=== PATIENT | female | born 1960 | race Caucasian/White ===

== ENCOUNTER 2023-12-17 16:44 | Emergency (ER) | payer OTHER, BC, SELFPAY ==
[2023-12-17 16:44] VITALS: BP 221/86; PULSE 73; RESP 18; TEMP 36.3; O2SAT 95
--- NOTE | 2023-12-17 16:52 | ED.SKABFB ---
HPI - Skin/Abscess/Foreign Bdy General Chief complaint: Unspecified Stated complaint: itching Time Seen by Provider: 12/17/23 16:52 Source: patient Mode of arrival: ambulatory Limitations: no limitations History of Present Illness HPI narrative: 63-year-old female with a history of hypertension, diabetes mellitus, SVT, fatty liver, status post cholecystectomy presents to the ER with 3 day history of -- generalized itching. No rash noted. Patient has not started any new medications. No new foods ingested. -- High blood pressure which on presentation was noted to be 182/80 no chest pain or shortness of breath. Patient is compliant with her blood pressure medications. MD complaint: other ( No skin lesions noted.) Tetanus up to date: yes Location: generalized Relieving factors: none Exacerbating factors: none Context: none Associated symptoms: denies other symptoms Treatments prior to arrival: none Related Data Home Medications Medication Instructions Recorded Confirmed clonidine HCl 0.1 mg tablet 0.1 mg PO BID 12/17/23 12/17/23 hydralazine 50 mg tablet 50 mg PO TID 12/17/23 12/17/23 metformin 500 mg tablet 500 mg PO BID 12/17/23 12/17/23 olmesartan 40 1 tablet PO DAILY 12/17/23 12/17/23 mg-hydrochlorothiazide 12.5 mg tablet verapamil 120 mg 24 hr 120 mg PO BID 12/17/23 12/17/23 capsule,extended release Allergies Allergy/AdvReac Type Severity Reaction Status Date / Time lincomycin Allergy Unknown Verified 12/17/23 16:51 Penicillins Allergy Unknown Verified 12/17/23 16:51 Sulfa (Sulfonamide Allergy Unknown Verified 12/17/23 16:51 Antibiotics) Review of Systems Review of Systems: All systems reviewed & are unremarkable except as noted in HPI and below Constitutional: Constitutional: Reports as per HPI and Reports no additional constitutional complaints Eyes: Eyes: Reports as per HPI and Reports no additional eye complaints ENT: Reports system reviewed and no additional complaints, except as documented and Reports as per HPI Cardiovascular: Cardiovascular: Reports as per HPI and Reports no additional cardiovascular complaints Respiratory: Respiratory: Reports as per HPI and Reports no additional respiratory complaints Gastrointestinal: Gastrointestinal: Reports as per HPI and Reports no additional gastrointestinal complaints Genitourinary: Genitourinary: Reports no additional female genitourinary complaints and Reports as per HPI Musculoskeletal: Musculoskeletal: Reports no additional musculoskeletal complaints and Reports as per HPI Integumentary/Breasts: Skin/Breast: Reports system reviewed and no additional complaints, except as docu and Reports as per HPI Neurologic: Reports system reviewed and no additional complaints, except as documented and Reports as per HPI Psychiatric: Psychiatric: Reports no additional psychiatric complaints and Reports as per HPI Endocrine: Endocrine: Reports no additional endocrine complaints and Reports as per HPI Hematologic/Lymphatic: Hematologic/Lymphatic: Reports no additional hematologic/lymphatic complaints and Reports as per HPI Allergic/Immunologic: Allergic/Immunologic: Reports no additional allergic/immunologic complaints and Reports as per HPI [facility] Past Medical History Medical History Diabetes mellitus Hypertension Supraventricular tachycardia Surgical History Surgical History History of cholecystectomy Hx of tonsillectomy Exam Narrative: blood pressure of 184/82. Const: General: healthy appearing and no acute distress Nutritional Appearance: well nourished Orientation/consciousness: patient oriented x3 Limitations: no limitations HENMT: Head: normal to inspection Ears: external ears normal Face/Nose/Sinus: Normal external nose present Face and sinus: normal facial exam Mouth: Yes Normal oral and palatal mucos
[2023-12-17 16:56] LABS: Glucose Point of Care 174 mg/dl (65-105)
[2023-12-17 17:06] VITALS: BP 182/80; PULSE 72; RESP 18; O2SAT 98
--- NOTE | 2023-12-17 17:07 | ECG_ITS ---
Test Date: 2023-12-17 17:19:42 Measurements Intervals [place] Rate: 55 P: 35 [place]: 185 QRS: -16 QRSD: 102 T: 25 QT: 416 QTc: 401 Interpretive Statements SINUS BRADYCARDIA INCOMPLETE RIGHT BUNDLE BRANCH BLOCK [90+ ms QRS DURATION, TERMINAL R IN V1/V2, 40+ ms S IN I/aVL/V4/V5/V6] No previous ECG available for comparison Electronically Signed On 12-18-2023 13:23:22 CDT by Breonna Rainey M.D.
[2023-12-17 17:14] LABS: Basophils Absolute Auto 0.04 K/mm3 (0.00-0.10); Basophils Percent Auto 0.4 % (0.0-1.0); Eosinophils Absolute Auto 0.12 K/mm3 (0.02-0.50); Eosinophils Percent Auto 1.2 % (1.0-6.0); Hematocrit 35.6 % (35.0-49.0); Hemoglobin 12.2 g/dL (12.0-15.0); Immature Granulocyte Absolute 0.05 K/mm3 (0.00-0.00); Immature Granulocyte Percent A 0.5 % (0.0-0.0); Lymphocytes Percent Auto 46.9 % (18.0-42.0); Mean Corpuscular HGB Conc 34.3 g/dL (32-36); Mean Corpuscular Hemoglobin 30.9 pg (27.0-31.0); Mean Corpuscular Volume 90.1 fL (78.0-102.0); Mean Platelet Volume 10.7 fl (9.2-11.8); Monocytes Absolute Auto 0.58 K/mm3 (0.10-0.90); Monocytes Percent Auto 5.7 % (2.0-11.0); Neutrophils Absolute Auto 4.65 K/mm3 (1.70-7.20); Neutrophils Percent Auto 45.3 % (50.0-70.0); Platelet Count Result 238 K/mm3 (150-420); Red Blood Count 3.95 M/mm3 (4.20-5.40); Red Cell Distribution Width 12.5 % (11.6-14.4); White Blood Count 10.2 K/mm3 (4.8-10.8)
[2023-12-17 17:16] LABS: Appearance Urine Clear (Clear); Bilirubin Urine Negative (Negative); Blood Urine Negative (Negative); Color Urine Yellow (Yellow); Glucose Urine UA Negative (Negative); Ketones Urine Negative (Negative); Leukocyte Esterase Ur Negative LEU/UL (Negative); Nitrate Urine Negative (Negative); Protein Urine Negative (Negative); Urobilinogen Urine 0.2 mg/dL (0.2-1.0)
[2023-12-17 17:22] LABS: Add Urine Microscopic? NO
[2023-12-17 17:27] LABS: INR 0.9; Prothrombin Time 10.3 Seconds (9.50-12.1)
[2023-12-17 17:45] LABS: Alanine Aminotransferase 34 U/L (14-59); Aspartate Amino Transferase 19 U/L (15-37); Bilirubin,Total 0.4 mg/dL (0.00-1.00); Blood Urea Nitrogen 13 mg/dL (7-18); Calcium 8.9 mg/dL (8.5-10.1); Carbon Dioxide 25 mmol/L (21-32); Estimated Glomerular Filt Rate > 60; Glucose 183 mg/dL (70-99)
[2023-12-17 17:46] LABS: Albumin Level 3.5 g/dL (3.4-5.0); Alkaline Phosphatase 84 U/L (46-116)
[2023-12-17 17:47] LABS: Thyroid Stimulating Hormone 3.25 uIU/mL (0.36-3.74)
[2023-12-17 17:51] LABS: Anion Gap 9 mmol/L (4-12); Chloride 103 mmol/L (98-108); Osmolality Calculated 289 mOsm/kg (285-295); Potassium 3.6 mmol/L (3.5-5.1); Sodium 137 mmol/L (136-145)
[2023-12-17 18:05] VITALS: BP 189/84; PULSE 72; RESP 18; O2SAT 99
== END 2023-12-17 18:05 | disposition home or self-care (01) ==
PROVIDERS: Emergency Provider Internal Medicine Critical Care Medicine; PCP Physician Assistant
DX: L29.9 Pruritus, unspecified (principal); I10 Essential (primary) hypertension; E11.9 Type 2 diabetes mellitus without complications; Z90.49 Acquired absence of other specified parts of digestive tract; Z79.899 Other long term (current) drug therapy; Z79.84 Long term (current) use of oral hypoglycemic drugs
CPT/HCPCS: 36415; 80053; 81003; 82948; 84443; 84484; 85025; 85610; 93005; 99284

== ENCOUNTER 2024-11-22 15:58 | Emergency (ER) | payer OTHER, BC, SELFPAY ==
--- OUTSIDE RECORDS SUMMARY | 2024-11-22 16:00 | XMS_ITS | Clinical Summary ---
Author Organization [facility] Address [address] [place] [address] Phone Care Team Providers Care Plant And Maintenance Technician Name Role Phone Gopal Boogie Primary Care Provider [phone] Allergies Active Allergy Reactions Criticality Noted Date Comments Iodinated Contrast Media Shortness of Breath Lincomycin Hives 10/24/2019 Penicillins Hives 10/24/2019 Sulfa Antibiotics Hives 10/24/2019 Medications verapamil (CALAN,ISOPTIN) 40 MG Tablet Take 40 mg by mouth 2 times daily. Active lisinopril (PRINIVIL, ZESTRIL) 40 MG Tablet Take 40 mg by mouth 2 times daily. Active dicyclomine (BENTYL) 20 MG Tablet Take 1 Tab by mouth every 6 hours. 30 Tab 10/24/2019 Active clonazePAM (KlonoPIN) 0.5 MG Tablet Take 0.1 mg by mouth 3 times daily. Active cloNIDine (CATAPRES) 0.1 MG Tablet Take 0.1 mg by mouth 2 times daily. Active hydrALAZINE 25 MG Tablet Take 25 mg by mouth in the morning and at bedtime. Active Social History Tobacco Use Types Packs/Day Years Used Date Smoking Tobacco: Former Smokeless Tobacco: Never Alcohol Use Standard Drinks/Week Comments Never 0 (1 standard drink = 0.6 oz pur e alcohol) AUDIT-C Answer Date Recorded Q1: How often do you have a drink containing alc ohol? Never 10/24/2019 Average Number of Drinks Not on file 020 Frequency of Binge Drinking Not on file 06/2019 Comments No Sex and Gender Information Value Date Recorded Sex Assigned at Female 06/23/2023 5:06 AM TESTING CONSULTANT Legal Sex Female 12:58 AM CDT Gender Identity Female 06/23/2023 5:06 AM TESTING CONSULTANT Sexual Orientation Not on file Last Filed Vital Signs Vital Sign Reading Time Taken Comments Blood Pressure 166/72 04/18/2024 5:30 AM CDT Pulse 61 04/18/2024 5:30 AM CDT Temperature 37 C (98.6 F) 04/18/2024 3:17 AM CDT Respiratory Rate 19 04/18/2024 5:30 AM CDT Oxygen Saturation 97% 04/18/2024 5:30 AM CDT Inhaled Oxygen Concentration - - Weight 121.3 kg (267 lb 6.7 oz) 04/18/2024 3:17 AM CDT Height 162.6 cm (5' 4) 04/18/2024 3:17 AM CDT Body Mass Index 45.9 04/18/2024 3:17 AM CDT Plan of Treatment Health Maintenance Due Date Last Done Comments Hepatitis C Virus (HCV) Screening 1961 Mammogram 1961 TdaP Immunization 1961 Pap Smear 1982 Cervical Cancer Screening (CCS) 12/05/1991 HPV/Cotest 12/05/1991 Colonoscopy 2006 Colorectal Cancer Screening 2006 Cologuard 12/05/2011 Immunochemical Fecal Occult Blood 12/05/2011 Pneumococcal Immunization (5 0+ years) (1 of 1 - PCV) 12/05/2011 Zoster Immunization (1 of 2) 12/05/2011 Respiratory Syncytial Virus (RSV) Immunization (Adult) (1 - Risk 60-74 years 1-dose series) 2021 Influenza Immunization (#1) 2024 SARS-COV-2 Immunization ( season) 2024 DTaP/Tdap/Td Immunization Discontinued 02/13/2006 Hepatitis B Immunization Aged Out No longer eligible based on patient's age to complete this topic Meningococcal Immunization (ACWY) Aged Out No longer eligible based on patient's age to complete this topic Rotavirus Immunization Aged Out No lo nger eligible based on patient's age to complete this topic Insurance MEDICAID BL[place] [employer] Care Teams Plant And Maintenance Technician Relationship Specialty Start Date End Date Gopal Boogie, [address] [place] [address] PCP - General Physician Delivery Coordinator 06/15/21
--- OUTSIDE RECORDS SUMMARY | 2024-11-22 16:00 | XMS_ITS | Referral Summary ---
Author Organization [facility] Address [facility] [place] [address] Care Team Providers Care Traffic Operations Engineer Name Role Phone Gopal Boogie Primary Care Provider [phone] Allergies Active Allergy Reactions Criticality Noted Date Comments Iodinated Contrast Media Shortness of breath High 10/24/2019 Lincomycin Hives,Other (See comments) Medium 10/24/2019 Reaction: hives, Reaction: Penicillins Hives,Other (See comments) Low Reaction: hives, , Reaction: Sulfa (Sulfonamide Antibiotics) Hives,Other (See comments) Low Reaction: hives, , Reaction: Medications metFORMIN (GLUCOPHAGE) 850 mg tablet Take 1 tablet (850 mg total) by mouth 2 (two) times a day with meals 60 tablet 3 Active rosuvastatin (CRESTOR) 10 mg tablet Take 1 tablet (10 mg total) by mouth daily 30 tablet 3 Active olmesartan-hyd rochlorothiazi de (BENICAR HCT) 40-25 mg per tablet Take 1 tablet by mouth daily 30 tablet 5 07/07/19 26 Active potassium chloride ER (KLOR-CON) 20 mEq CR tablet Take 1 tablet (20 mEq total) by mouth daily 30 tablet 5 07/07/19 26 Active cloNIDine (CATAPRES) 0.1 mg tablet Take 1 tablet (0.1 mg total) by mouth 2 (two) times a day 180 tablet 3 5 Active verapamil ER (VERELAN) 120 mg 24 hr capsule TAKE 1 CAPSULE BY MOUTH TWICE DAILY 180 capsule 3 5 Active hydrALAZINE (APRESOLINE) 50 mg tablet TAKE 1 TABLET(50 MG) BY MOUTH THREE TIMES DAILY 270 tablet 1 5 Active hydrALAZINE (APRESOLINE) 50 mg tablet Take 1 tablet (50 mg total) by mouth 3 (three) times a day 270 tablet 1 5 11/12/19 25 Discontinued Active Problems Problem Noted Date Diagnosed Date Obstructive sleep apnea 05/02/2023 BMI 40.0-44.9, adult 05/02/2023 Nonsmoker 05/02/2023 Psychophysiological insomnia 05/02/2023 Circadian rhythm sleep disorder, 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 Class 3 severe obesity due t o excess calories with serious comorbidity and body mass index (BMI) of 45.0 to 49.9 in adult 02/24/2021 Nonalcoholic steatohepatitis 02/04/2021 Knee pain 05/13/2015 Palpitations 08/06/2013 Supraventricular arrhythmia 08/06/2013 Immunizations Immunization Administration Dates Next Due Td, adsorbed 02/13/2006 Social History Tobacco Use Types Packs/Day Years Used Date Smoking Tobacco: Former Smokeless Tobacco: Never Comments:Smoking History Pac ks/day: 1 Packs Alcohol Use Standard Drinks/Week Comments Yes 0 (1 standard drink = 0.6 oz pur e alcohol) AUDIT-C Answer Date Recorded Q1: How often do you have a drink containing alc ohol? Never 02/04/2021 Average Number of Drinks Not on file 021 Q3: How often do you have si x or more drinks on one occasion? Never 02/04/2021 Personal Safety Answer Date Recorded Getting School Help Needed Not on file 06/09 Comments Unknown Sex and Gender Information Value Date Recorded Sex Assigned at Not on file Legal Sex Female 9:14 PM MARKET SALES MANAGER Gender Identity Not on file Sexual Orientation Not on file Last Filed Vital Signs Vital Sign Reading Time Taken Comments Blood Pressure 152/70 05/02/2023 3:47 PM MARKET SALES MANAGER Pulse 63 05/02/2023 3:47 PM MARKET SALES MANAGER Temperature 36.8 C (98.2 F) 05/02/2023 3:47 PM MARKET SALES MANAGER Respiratory Rate 18 05/02/2023 3:47 PM MARKET SALES MANAGER Oxygen Saturation 97% 05/02/2023 3:47 PM MARKET SALES MANAGER Inhaled Oxygen Concentration - - Weight 116.6 kg (257 lb) 05/02/2023 3:47 PM MARKET SALES MANAGER Height 161.3 cm (5' 3.5) 05/02/2023 3:47 PM MARKET SALES MANAGER Body Mass Index 44.81 05/02/2023 3:47 PM MARKET SALES MANAGER Plan of Treatment Not on file Insurance [employer] OPEN ACCESS HEALTHLINK OPEN ACCESS Member Subscriber Plan / Payer (Ef fective 2021-Present) Name:Amanda Pruitt Relation to Subscriber:Self Name:Amanda Priutt Payer ID:[id number] Group ID:[id number] Type:[employer] HMO/PPO Address: [address] [facility] OPEN ACCESS Care Teams Traffic Operations Engineer Relationship Specialty Start Date End Date Gopal Boogie PA [address] [place] [address] PCP - General Family Practice 01/16/23
--- OUTSIDE RECORDS SUMMARY | 2024-11-22 16:00 | XMS_ITS | Clinical Summary ---
Author Organization [facility] Address [address] [place] [id number] Care Team Providers Care Occupational Health Physician Name Role Phone Gopal Boogie Primary Care Provider [phone] Allergies Active Allergy Reactions Criticality Noted Date [...] Administration Dates Next Due Td, adsorbed 02/13/2006 Surgical History Surgery Date Site/Laterality Comments OTHER SURGICAL HISTORY 1976 Tonsillitis: tonsillectomy OTHER SURGICAL HISTORY 1992 Cholelithiasis: cholecystectomy Medical History Medical History Date Comments Hx Other Medical Hypertension Hx Other Medical Diabetes Hx Other Medical SVT on occasion Hx Other Medical 1976 Tonsillitis Hx Other Medical 1992 Cholelithiasis Family History Medical History Relation Name Comments Hypertension Father Hypertension; Hypertension Mother Hypertension; Diabetes Sister 2 Diabetes; Hypertension Sister 3 Hypertension; Heart attack Sister 4 Myocardial infa rction; Kidney failure Sister 5 Renal failure ; Cause of : Renal failure Relation Name Status Comments Father Mother Sister 1 (Age 55) Sister 2 Sister 3 Sister 4 Sister 5 Social History Tobacco Use Types Packs/Day Years [...] on file Legal Sex Female 9:14 PM DORMITORY COUNSELOR Gender Identity Not on file Sexual Orientation Not on file Obstetrics History Last Filed Vital Signs Vital Sign Reading Time Taken Comments Blood Pressure 152/70 05/02/2023 3:47 PM DORMITORY COUNSELOR Pulse 63 05/02/2023 3:47 PM DORMITORY COUNSELOR Temperature 36.8 C (98.2 F) 05/02/2023 3:47 PM DORMITORY COUNSELOR Respiratory Rate 18 05/02/2023 3:47 PM DORMITORY COUNSELOR Oxygen Saturation 97% 05/02/2023 3:47 PM DORMITORY COUNSELOR Inhaled Oxygen Concentration - - Weight 116.6 kg (257 lb) 05/02/2023 3:47 PM DORMITORY COUNSELOR Height 161.3 cm (5' 3.5) 05/02/2023 3:47 PM DORMITORY COUNSELOR Body Mass Index 44.81 05/02/2023 3:47 PM DORMITORY COUNSELOR Plan of Treatment Health Maintenance Due Date Last Done Comments Breast Cancer Screening-Mammogram 1961 Cervical Cancer Screening 1961 Colon Cancer Screening-Colonoscopy 1961 Depression Screening 1961 Hepatitis C Screening 1961 Hepatitis B Screening 12/05/1979 Regular Well Visit/Exam 18-64 12/05/1979 Pneumococcal vaccine <65 (1 of 2 - PCV) 1980 DTaP/Tdap/Td Vaccine (1 - Tdap) 02/14/2006 6 Zoster Vaccine (1 of 2) 12/05/2011 Influenza Vaccine (Season Ended) 2025 Insurance [employer] OPEN ACCESS HEALTHLINK OPEN ACCESS Member Subscriber Plan / Payer (Ef fective 2021-Present) Name:Amanda Pruitt Relation to Subscriber:Self Name:Amanda Pruitt Payer ID:[id number] Group ID:[id number] Type:[employer] HMO/PPO Address: [address] [facility] HEALTHLINK OPEN ACCESS Care Teams Occupational Health Physician Relationship Specialty Start Date End Date Gopal Boogie PA [address] [place] [address] PCP - General Family Practice 01/16/23
--- OUTSIDE RECORDS SUMMARY | 2024-11-22 16:00 | XMS_ITS | Clinical Summary ---
Author Organization [facility] Address [address] [place] [id number] Care Team Providers Care Printing Screen Assembler Name Role Phone Unavailable Primary Care Provider Unavailabl e Allergies Active Allergy Reactions Criticality Noted Date Comments Lincomycin Hives,Other (See Comments) High 10/24/2019 Reaction: hives, Reaction: Penicillins Hives High 08/30/2019 Reaction: hives, , Reaction: Sulfa (Sulfonamide Antibiotics) Hives High 10/24/2019 Medications cloNIDine HCL (CATAPRES) 0.1 mg tablet Take 0.1 mg by mouth 2 times daily. Active hydrALAZINE (APRESOLINE) 50 mg tablet Take 50 mg by mouth. 01/31/2023 Active verapamiL (CALAN SR) 120 mg Sustained Release tablet Take 1 Tablet by mouth daily. 05/09/2023 Active olmesartan-hydr oCHLOROthiazide (BENICAR-HCT) 40-12.5 mg tablet Take 1 Tablet by mouth daily. 01/31/2023 Active cefdinir (OMNICEF) 300 mg capsule Take 1 Capsule (300 mg) by mouth every 12 hours. 14 Capsule 06/09/2023 Active Active Problems No known active problems Social History Tobacco Use Types Packs/Day Years Used Date Smoking Tobacco: Never Assessed Comments Unknown Sex and Gender Information Value Date Recorded Sex Assigned at Not on file Legal Sex Female 11:35 PM CDT Gender Identity Not on file Sexual Orientation Not on file Last Filed Vital Signs Vital Sign Reading Time Taken Comments Blood Pressure 196/82 06/09/2023 5:10 PM MEAT PICKLER Pulse 92 06/09/2023 5:10 PM MEAT PICKLER Temperature 36.7 C (98 F) 06/09/2023 5:10 PM MEAT PICKLER Respiratory Rate 20 06/09/2023 5:10 PM MEAT PICKLER Oxygen Saturation 94% 06/09/2023 5:10 PM MEAT PICKLER Inhaled Oxygen Concentration - - Weight 127 kg (280 lb) 06/09/2023 5:10 PM MEAT PICKLER Height 160 cm (5' 3) 06/09/2023 5:10 PM MEAT PICKLER Body Mass Index 49.6 06/09/2023 5:10 PM MEAT PICKLER Plan of Treatment Health Maintenance Due Date Last Done Comments DTAP/TDAP/TD VACCINES (1 - Tdap) 1980 HPV/Cotest (21-29) 1982 CERVICAL CANCER SCREENING 12/05/1991 HPV/Cotest (30-65) 12/05/1991 PAP SMEAR 12/05/1991 BREAST CANCER SCREENING 2001 COLORECTAL SCREENING 2006 Colorectal Cancer Screening 2006 FIT-DNA Q 3 years 2006 FIT/FOBT Q 1 year 2006 Flex Sig/CT Colonography Q 5 years 2006 ZOSTER VACCINE (1 of 2) 12/05/2011 INFLUENZA VACCINE (#1) 2024 RSV VACCINE (60+ or ) (1 - 1-dose 75+ series) 2036 Insurance [employer]
[2024-11-22 16:04] VITALS: BP 141/71; PULSE 66; RESP 14; TEMP 36.1; O2SAT 98
--- NOTE | 2024-11-22 16:31 | ECG_ITS ---
Test Date: 2024-11-22 16:44:23 Measurements Intervals [place] Rate: 62 P: 35 [place]: 193 QRS: -27 QRSD: 104 T: 31 QT: 417 QTc: 426 Interpretive Statements SINUS RHYTHM INCOMPLETE RIGHT BUNDLE BRANCH BLOCK VOLTAGE CRITERIA FOR LVH BASELINE ARTIFACT- II, III, AVF BORDERLINE ECG Compared to ECG 12/17/2023 17:19:42 HEART RATE HAS INCREASED Electronically Signed On 11-23-2024 07:03:24 CDT by Fady Richardson D.O.
--- OUTSIDE RECORDS SUMMARY | 2024-11-22 16:33 | XMS_ITS | Clinical Summary ---
Author Organization [facility] Address [address] [place] [address] Phone Care Team Providers Care Cloth Doubling Machine Operator Name Role Phone Gopal Boogie Primary Care Provider [phone] Allergies Active Allergy Reactions Criticality Noted Date [...] Sex Assigned at Female 06/23/2023 5:06 AM CITRUS FRUIT COLORER Legal Sex Female 12:58 AM CDT Gender Identity Female 06/23/2023 5:06 AM CITRUS FRUIT COLORER Sexual Orientation Not on file Last Filed [...] this topic Insurance MEDICAID BLUE CROSS [place] [employer] Care Teams Cloth Doubling Machine Operator Relationship Specialty Start Date End Date Gopal Boogie, [address] [place] [address] PCP - General Physician Aboriginal Home School Liaison Officer 06/15/21
--- OUTSIDE RECORDS SUMMARY | 2024-11-22 16:33 | XMS_ITS | Clinical Summary ---
Author Organization [facility] Address [address] [place] [phone] Care Team Providers Care Entry Manager Name Role Phone Unavailable Primary Care Provider [...] Comments Blood Pressure 196/82 06/09/2023 5:10 PM BOOT AND SHOE LABORER Pulse 92 06/09/2023 5:10 PM BOOT AND SHOE LABORER Temperature 36.7 C (98 F) 06/09/2023 5:10 PM BOOT AND SHOE LABORER Respiratory Rate 20 06/09/2023 5:10 PM BOOT AND SHOE LABORER Oxygen Saturation 94% 06/09/2023 5:10 PM BOOT AND SHOE LABORER Inhaled Oxygen Concentration - - Weight 127 kg (280 lb) 06/09/2023 5:10 PM BOOT AND SHOE LABORER Height 160 cm (5' 3) 06/09/2023 5:10 PM BOOT AND SHOE LABORER Body Mass Index 49.6 06/09/2023 5:10 PM BOOT AND SHOE LABORER Plan of Treatment Health Maintenance Due Date [...] (1 - 1-dose 75+ series) 2036 Insurance [employer]
[2024-11-22] MEDS: SODIUM CHLORIDE 0.9% IV 1,000 ML 999 ML IV CONT (16:37)
[2024-11-22 16:52] LABS: Alanine Aminotransferase 30 U/L (6-35); Albumin Level 4.1 g/dL (3.5-5.1); Alkaline Phosphatase 96 U/L (38-126); Anion Gap 8 mmol/L (4-12); Aspartate Amino Transferase 30 U/L (14-36); Bilirubin,Total 0.6 mg/dL (0.2-1.3); Blood Urea Nitrogen 22 mg/dL (7-17); Calcium 9.3 mg/dL (8.4-10.2); Carbon Dioxide 25 mmol/L (22-30); Chloride 106 mmol/L (98-107); Estimated CRCL calculation 65 ml/min; Estimated Glomerular Filt Rate 58; Glucose 190 mg/dL (65-110); Magnesium 1.6 mg/dL (1.6-2.3); Osmolality Calculated 296 mOsm/kg (285-295); Potassium 3.9 mmol/L (3.4-5.0); Sodium 139 mmol/L (137-145); Total Protein 7.2 g/dL (6.3-8.2)
--- NOTE | 2024-11-22 17:04 | ED_ITS ---
HPI - Arrhythmia/Palpitations General Chief Complaint: Arrhythmia/Palpitations Stated Complaint: leg cramps Source: patient Mode of arrival: ambulatory Limitations: no limitations History of Present Illness HPI narrative: this is a 63-year-old female that presents with some palpitations that is chronic for her but she has been having lower extremity cramping for the last couple of days and is currently on potassium supplement feels dehydrated although there is no weakness no chest pain no shortness of breath no nausea vomiting no abdominal pain no flank pain no dysuria or hematuria. No fever chills. complaint: palpitations Onset (ago): day(s) Duration: intermittent Severity: mild Related Data Home Medications ?Medication ?Instructions ?Recorded ?Confirmed ?Last Taken ?Type clonidine HCl 0.1 mg tablet 0.1 mg PO BID 12/17/23 12/17/23 Unknown History hydralazine 50 mg tablet 50 mg PO TID 12/17/23 12/17/23 Unknown History metformin 500 mg tablet 500 mg PO BID 12/17/23 12/17/23 Unknown History olmesartan 40 1 tablet PO DAILY 12/17/23 12/17/23 Unknown History mg-hydrochlorothiazide 12.5 mg tablet verapamil 120 mg 24 hr 120 mg PO BID 12/17/23 12/17/23 Unknown History capsule,extended release potassium chloride 20 mEq meq PO 11/22/24 Unknown History tablet,extended release(part/cryst) Allergies Allergy/AdvReac Type Severity Reaction Status Date / Time lincomycin Allergy Unknown Verified 11/22/24 16:17 Penicillins Allergy Unknown Verified 11/22/24 16:17 Sulfa (Sulfonamide Allergy Unknown Verified 11/22/24 16:17 Antibiotics) Review of Systems 2 Review of Systems: All systems reviewed & are unremarkable except as noted in HPI and below PMFSH Past Medical History Medical History Supraventricular tachycardia Diabetes mellitus Hypertension Surgical History Surgical History Hx of tonsillectomy History of cholecystectomy Exam 2 Const: General: healthy appearing and no acute distress Nutritional Appearance: well nourished and obese Orientation/consciousness: patient oriented x3 Limitations: no limitations HENMT: Head: normal to inspection Eyes: Conjunctivae: conjunctivae normal Pupils: Equal, round and reactive pupils present EOM: EOMs intact bilaterally Neck: Neck: normal visual inspection, no lymphadenopathy and no meningeal signs Chest: Chest palpation & inspection: normal inspection of the chest Resp: Effort & Inspection: normal respiratory effort Auscultation: clear to auscultation bilaterally Cardio: Rate: regular rate Rhythm: regular rhythm GI: Inspection: distended GI Palp: Yes Soft to palpation Auscultation: n ormal bowel sounds : General: Yes bladder normal to palpation Urinary Catheter: Urinary Catheter: patent and draining Back/Spine/Pelvis: Back: no CVA tenderness Skin: General skin exam: normal color Neuro: General: patient oriented x3, moves all extremities, no meningeal signs and no focal motor deficits Extrem: General: normal to inspection, no clubbing, cyanosis or edema and no pedal edema Other: No calf pain with palpation Course Course Emergency Course: patient received IV fluids with normal saline electrolytes and magnesium reviewed and no abnormalities, EKG shows incomplete right heart bone branch block otherwise no other abnormality seen on EKG. Vital Signs Vital signs: Vital Signs Temperature 36.1 C L 11/22/24 16:04 Pulse Rate 66 11/22/24 16:04 Respiratory Rate 14 11/22/24 16:04 Blood Pressure 141/71 H 11/22/24 16:04 Pulse Oximetry 98 11/22/24 16:04 Oxygen Delivery Room Air 11/22/24 16:04 Temperature 36.1 C L 11/22/24 16:04 Pulse Rate 66 11/22/24 16:04 Respiratory Rate 14 11/22/24 16:04 Blood Pressure 141/71 H 11/22/24 16:04 Pulse Oximetry 98 11/22/24 16:04 Oxygen Delivery Room Air 11/22/24 16:04 MDM - Arrhythmia/Palpitations Lab Data 11/22/24 16:38 Labs: Lab Results 11/22/24 Range/Units 16:38 Sodium 139 (137-145) mmol/L Potassium 3.9 (3.4-5.0) mmol/L Chloride 106 (98-107) mmol/L Carbon Dioxide 25 (22-30) mmol/L Anion Gap 8 (4-12) mmol/L BUN 22 H (7-17) mg/dL Creatinine 0.98 (0.7-1.0) mg/dL Estim Creat Clear Calc 65 ml/min Estimated GFR 58 L (59 - ) Glucose 190 H (65-110) mg/dL Calculated Osmolality 296 H (285-295) mOsm/kg Calcium 9.3 (8.4-10.2) mg/dL Magnesium 1.6 (1.6-2.3) mg/dL Total Bilirubin 0.6 (0.2-1.3) mg/dL AST 30 (14-36) U/L ALT 30 (6-35) U/L Alkaline Phosphatase 96 (38-126) U/L Total Protein 7.2 (6.3-8.2) g/dL Albumin 4.1 (3.5-5.1) g/dL Critical Care Time Critical Care Time Critical Care Time: No Discharge Plan Discharge Clinical Impression: Cramp in muscle Patient Disposition: Home Condition: Stable Instructions: Antibiotic Form, Muscle Cramp (ED) Additional Instructions: advised patient to drink plenty of water, take magnesium glycinate 400mg an hour before bedtime and follow with primary care physician within the next week further evaluation and treatment. Patient Language: Tristanian Prescriptions: No Action clonidine HCl 0.1 mg tablet 0.1 mg PO BID hydralazine 50 mg tablet 50 mg PO TID verapamil 120 mg capsule,ext rel. pellets 24 hr 120 mg PO BID olmesartan-hydrochlorothiazide 40-12.5 mg tablet 1 tablet PO DAILY metformin 500 mg tablet 500 mg PO BID Patient Comments: reports she is not taking potassium chloride 20 mEq tablet,ER particles/crystals PO Follow-up/Referrals: Chuyita,JACQUELYN Riley [Primary Care Provider] - Time of Disposition: 17:08
[2024-11-22 17:19] VITALS: BP 146/76; PULSE 68; RESP 20; O2SAT 98
== END 2024-11-22 17:20 | disposition home or self-care (01) ==
PROVIDERS: Emergency Provider Emergency Medicine; PCP Physician Assistant
DX: R25.2 Cramp and spasm (principal); E11.9 Type 2 diabetes mellitus without complications; I10 Essential (primary) hypertension
CPT/HCPCS: 36415; 80053; 83735; 93005; 96360; 99283; J7030

== ENCOUNTER 2025-01-30 22:51 | Emergency (ER) | payer OTHER, BC, SELFPAY ==
--- OUTSIDE RECORDS SUMMARY | 2025-01-30 22:53 | XMS_ITS | Encounter Summary ---
Author Organization [facility] Address [address] [place] [address] Phone Care Team Providers Care Production Supply Equipment Tender Name Role Phone Gopal Boogie Primary Care Provider [phone] Encounter Details Date Type Department Care Team (Late st Contact Info) Description 01/29/2025 Telephone [facility] [address] [facility] Advanced Medicine 8th [place] [address] [place] [address] Odell Denny MD [address] [facility] [address] [place] [address] Social History Tobacco Use Types Packs/Day Years [...] on file 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 LM with patient to call back to clarify her cardiology care moving forward. She cancels her appointments after med ications are refilled. The pharmacy will send her script to her PCP. * Telephone Encounter - Yaritza Brice RN - 01/29/2025 9:16 AM CDT ----- Message from Nurse Pina Milton sent at 01/29/2025 8:36 AM CDT ----- [place] patient ----- Message ----- From: Guzman Gandhi Sent: 01/28/2025 8:02 AM CDT To: Keyshawn Im Alex Rater Clinical Pool Refill request ----- Message ----- From: Dee Stone Sent: 01/27/2025 3:35 PM CDT To: Keyshawn Im Card Scheduling Pool documented in this encounter Plan of Treatment Not on file documented as of this encounter Visit Diagnoses Not on filedocumented in this encounter Care Teams Production Supply Equipment Tender Relationship Specialty Start Date End Date Gopal Boogie PA [address] [place] [address] PCP - General Family Practice 01/16/23 documented as of this encounter
--- OUTSIDE RECORDS SUMMARY | 2025-01-30 22:53 | XMS_ITS | Clinical Summary ---
Author Organization [facility] Address [address] [place] [address] Care Team Providers Care Bedspread Inspector Name Role Phone Gopal Boogie Primary Care Provider [phone] Allergies Active Allergy Reactions Criticality Noted Date [...] times a day with meals 60 tablet 01/19/2023 Active rosuvastatin (CRESTOR) 10 mg tablet Take 1 tablet (10 mg total) by mouth daily 30 tablet 01/19/2023 Active olmesartan-hydr ochlorothiazide (BENICAR HCT) 40-25 mg per tablet Take 1 tablet by mouth daily 30 tablet 07/07/2024 Active potassium chloride ER (KLOR-CON) 20 mEq CR tablet Take 1 tablet (20 mEq total) by mouth daily 30 tablet 07/07/2024 Active cloNIDine (CATAPRES) 0.1 mg tablet Take 1 tablet (0.1 mg total) by mouth 2 (two) times a day 180 tablet 3 07/18/2024 Active verapamil ER (VERELAN) 120 mg 24 hr capsule TAKE 1 CAPSULE BY MOUTH TWICE DAILY 180 capsule 3 08/20/2024 Active hydrALAZINE (APRESOLINE) 50 mg tablet TAKE 1 TABLET BY MOUTH THREE TIMES DAILY 90 tablet 12/08/2024 Active Active Problems Problem Noted Date Diagnosed Date [...] pain 05/13/2015 Palpitations 08/06/2013 Supraventricular arrhythmia 08/06/2013 Encounters Date Type Department Care Team Description 01/29/2025 Telephone [facility] Cardiology [address] [place] [address] Advanced Medicine 8th [place] [address] [place] [address] Odell Denny MD 01/16/2025 Telephone [facility] Cardiology [address] [place] [address] Advanced Medicine 8th [place] [address] [place] [address] [place], DORENE jazzy rov 01/12/2025 Telephone [facility] Cardiology [address] [place] [address] [place] [address] [place] [address] Odell Denny MD 01/12/2025 Telephone [facility]iology [address] [place] [address] [place] [address] [place] [address] Odell Denny MD from Last 3 Months Immunizations Immunization Administration Dates Next Due Td, [...] on file 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 Gender Identity Not on file Sexual Orientation Not on file Obstetrics History Last Filed Vital Signs Vital Sign Reading Time Taken Comments Blood Pressure 152/70 05/02/2023 3:47 PM REINFORCING STEEL WORKER Pulse 63 05/02/2023 3:47 PM REINFORCING STEEL WORKER Temperature 36.8 C (98.2 F) 05/02/2023 3:47 PM REINFORCING STEEL WORKER Respiratory Rate 18 05/02/2023 3:47 PM REINFORCING STEEL WORKER Oxygen Saturation 97% 05/02/2023 3:47 PM REINFORCING STEEL WORKER Inhaled Oxygen Concentration - - Weight 116.6 kg (257 lb) 05/02/2023 3:47 PM REINFORCING STEEL WORKER Height 161.3 cm (5' 3.5) 05/02/2023 3:47 PM REINFORCING STEEL WORKER Body Mass Index 44.81 05/02/2023 3:47 PM REINFORCING STEEL WORKER Plan of Treatment Health Maintenance Due Date Last Done Comments Breast Cancer Screening-Mammogram 1961 Cervical Cancer Screening 1961 Colon Cancer Screening-Colonoscopy 1961 Depression Screening 1961 Hepatitis C Screening 1961 Hepatitis B Screening 12/05/1979 Regular Well Visit/Exam 18-64 12/05/1979 Pneumococcal vaccine <65 (1 of 2 - PCV) 1980 DTaP/Tdap/Td Vaccine (1 - Tdap) 02/14/2006 6 Zoster Vaccine (1 of 2) 12/05/2011 Influenza Vaccine (#1) 2025 Insurance [employer] OPEN ACCESS [employer] OPEN ACCESS [facility] PLAN [facility] PLAN [employer] OPEN ACCESS Care Teams Bedspread Inspector Relationship Specialty Start Date End Date Gopal Boogie PA [address] [place] [address] PCP - General Family Practice 01/16/23
--- OUTSIDE RECORDS SUMMARY | 2025-01-30 22:53 | XMS_ITS | Clinical Summary ---
Author Organization [facility] Address [address] [place] [address] Care Team Providers Care Industrial Equipment Wirer Name Role Phone Unavailable Primary Care Provider [...] Comments Blood Pressure 196/82 06/09/2023 5:10 PM PRIMER BOXER Pulse 92 06/09/2023 5:10 PM PRIMER BOXER Temperature 36.7 C (98 F) 06/09/2023 5:10 PM PRIMER BOXER Respiratory Rate 20 06/09/2023 5:10 PM PRIMER BOXER Oxygen Saturation 94% 06/09/2023 5:10 PM PRIMER BOXER Inhaled Oxygen Concentration - - Weight 127 kg (280 lb) 06/09/2023 5:10 PM PRIMER BOXER Height 160 cm (5' 3) 06/09/2023 5:10 PM PRIMER BOXER Body Mass Index 49.6 06/09/2023 5:10 PM PRIMER BOXER Plan of Treatment Health Maintenance Due Date [...] (1 of 2) 12/05/2011 INFLUENZA VACCINE (#1) 2025 RSV VACCINE (60+ or ) (1 - 1-dose 75+ series) 2036 Insurance [employer]
--- OUTSIDE RECORDS SUMMARY | 2025-01-30 22:53 | XMS_ITS | Encounter Summary ---
Author Organization [facility] Address [address] [place] [address] Phone Care Team Providers Care Cinder Pitman Name Role Phone Gopal Boogie Primary Care Provider [phone] Encounter Details Date Type Department Care Team (Late st Contact Info) Description 01/12/2025 Telephone [facility] Cardiology [address] [facility] Advanced Medicine 8th [place] [address] [place] [address] Odell Denny MD [address] [facility] [address] [place] [address] Social History Tobacco Use Types Packs/Day Years [...] on file 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 Epps * Telephone Encounter - Marily Oliveira. - 01/12/2025 3:35 PM CDT ----- Message from Nurse Yartiza Frey sent at 01/12/2025 12:58 PM CDT ----- Regarding: [place] patient Per his last note. She does not need to follow with Dr. Epps. She can continue to follow with Darby Morgan or her PCP. I think this was appointment was set up due to refill requests being sent to Dr Epps. I will make sure they go to Darby moving forward. This patient usually wants a telemedicine appt. documented in this encounter Plan of Treatment Not on file documented as of this encounter Visit Diagnoses Not on filedocumented in this encounter Care Teams Cinder Pitman Relationship Specialty Start Date End Date Gopal Boogie PA [address] [place] [address] PCP - General Family Practice 01/16/23 documented as of this encounter
--- OUTSIDE RECORDS SUMMARY | 2025-01-30 22:53 | XMS_ITS | Clinical Summary ---
Author Organization [facility] Address [address] [place] [address] Phone Care Team Providers Care Student Recruiter Name Role Phone Gopal Boogie PAC Primary Care Provider [phone] Allergies Active Allergy Reactions Criticality Noted Date [...] in the morning and at bedtime. Active Encounters Date Type Department Care Team Description 01/19/2025 2:50 PM CDT - 01/19/2025 11:59 PM CDT Hospital Encounter [facility] Ultrasound [address] [place] [address] Gopal Boogie, PAC Discharge Disposition: Discharged to home or Selfcare 01/19/2025 Travel 01/02/2025 Transcribe Orders [facility] Central Scheduling [address] [place] [address] Gopal Boogie, ROULA Non-toxic goiter (Primary Dx) from Last 3 Months Social History Tobacco Use Types Packs/Day Years [...] Sex Assigned at Female 06/23/2023 5:06 AM CQ DEVELOPER Legal Sex Female 12:58 AM CDT Gender Identity Female 06/23/2023 5:06 AM CQ DEVELOPER Sexual Orientation Not on file Last Filed [...] Cervical Cancer Screening (CCS) 12/05/1991 HPV/Cotest 12/05/1991 Cologuard 2006 Colonoscopy 2006 Colorectal Cancer Screening 2006 Immunochemical Fecal Occult Blood 2006 Pneumococcal Immunization (5 0+ years) (1 of 1 - PCV) 12/05/2011 Zoster Immunization (1 of 2) 12/05/2011 Respiratory Syncytial Virus (RSV) Immunization (Adult) (1 - Risk 60-74 years 1-dose series) 2021 SARS-COV-2 Immunization (1 - 2023-25 season) 2024 Influenza Immunization (#1) 2025 DTaP/Tdap/Td Immunization Discontinued 02/13/2006 Hepatitis B Immunization Aged Out No longer eligible based on patient's age to complete this topic Human Papillomavirus (HPV) Immunization Aged Out No longer eligible b ased on patient's age to complete this topic Meningococcal Immunization (ACWY) Aged Out No longer eligible based on patient's age to complete this topic Rotavirus Immunization Aged Out No lo nger eligible based on patient's age to complete this topic Procedures Procedure Name Priority Date/Time Associated Diagnosis Comments US THYROID Routine 01/19/2025 3:14 PM CDT Non-toxic goiter from Last 3 Months Results * US THYROID (01/19/2025 3:14 PM CDT) Anatomical Region Laterality Modality BODY N/A Ultrasound 01/26/2025 11:1 5 AM CDT Impressions 01/26/2025 11:17 AM CDT IMPRESSION: The left thyroid 1.4 cm nodule does not meet criteria for fine-needle aspiration at this time. ACR TI-RADS Risk Category: 4 REFERENCE: According to the ACR Thyroid Imaging, Reporting and Data System (TI-RADS): White Paper of the ACR TI-RADS Committee Oct, 2016 recommendations regarding the management of thyroid nodules are as follows: 1. TI-RADS 1: Risk of malignancy <2%, no FNA or follow up required. 2. TI-RADS 2: Risk of malignancy <2%, no FNA or follow up required. 3. TI-RADS 3: Risk of malignancy 2%-5%. Nodules 1.5 cm or greater follow up at 1, 3 and 5 years recommended, for nodules 2.5 cm or greater FNA recommended. 4. TI-RADS 4: Risk of malignancy 5%-20% Nodules 1.0 cm or greater follow up at 1, 2, 3 and 5 years recommended, for nodules 1.5 cm or greater FNA recommended 5. TI-RADS 5: Risk of malignancy >20%. Nodules 0.5 cm or greater annual follow up for 5 years recommended, for nodules 1.0 cm or greater FNA recommended. The ACT TI-RADS committee recommends targeting no more than two nodules for FNA. If three or more nodules meet criteria for FNA, the two with the most suspicious appearance based on ACR TI-RADS points should be sampled. Narrative 01/26/2025 11:17 AM CDT EXAM DESCRIPTION: US THYROID REASON FOR STUDY: Doctor felt enlarged gland at visit. TECHNIQUE: Ultrasound of the thyroid was performed with grayscale and color doppler. COMPARISON: None available. FINDINGS: RIGHT: The right thyroid lobe measures 4.9 x 1.6 x 1.6 cm. No focal measured nodule. LEFT: The left thyroid lobe measures 4.9 x 1.8 x 1.5 cm. Upper pole mixed echogenicity, slightly hypoechoic nodule with calcifications measuring 1.2 x 1.4 x 0.9 cm (TR 4). ISTHMUS: The isthmus measures 0.3 cm in AP dimension. No focal measured nodule. THIS IS AN ELECTRONICALLY VERIFIED FINAL REPORT 01/26/2025 11:15 AM - Electronically signed by Brandon Rainey D.O. AP: AP Report ID: [id number] Reading Location: [place] [address] Procedure Note Brandon Rainey DO - 01/26/2025 EXAM DESCRIPTION: US THYROID REASON FOR STUDY: Doctor felt enlarged gland at visit. TECHNIQUE: Ultrasound of the thyroid was performed with grayscale and color doppler. COMPARISON: None available. FINDINGS: RIGHT: The right thyroid lobe measures 4.9 x 1.6 x 1.6 cm. No focal measured nodule. LEFT: The left thyroid lobe measures 4.9 x 1.8 x 1.5 cm. Upper pole mixed echogenicity, slightly hypoechoic nodule with calcifications measuring 1.2 x 1.4 x 0.9 cm (TR 4). ISTHMUS: The isthmus measures 0.3 cm in AP dimension. No focal measured nodule. THIS IS AN ELECTRONICALLY VERIFIED FINAL REPORT 01/26/2025 11:15 AM - Electronically signed by Brandon Rainey D.O. AP: RICK Report ID: [id number] Reading Location: [place] [address] IMPRESSION: The left thyroid 1.4 cm nodule does not meet criteria for fine-needle aspiration at this time. ACR TI-RADS Risk Category: 4 REFERENCE: According to the ACR Thyroid Imaging, Reporting and Data System (TI-RADS): White Paper of the ACR TI-RADS Committee Oct, 2016 recommendations regarding the management of thyroid nodules are as follows: 1. TI-RADS 1: Risk of malignancy <2%, no FNA or follow up required. 2. TI-RADS 2: Risk of malignancy <2%, no FNA or follow up required. 3. TI-RADS 3: Risk of malignancy 2%-5%. Nodules 1.5 cm or greater follow up at 1, 3 and 5 years recommended, for nodules 2.5 cm or greater FNA recommended. 4. TI-RADS 4: Risk of malignancy 5%-20% Nodules 1.0 cm or greater follow up at 1, 2, 3 and 5 years recommended, for nodules 1.5 cm or greater FNA recommended 5. TI-RADS 5: Risk of malignancy >20%. Nodules 0.5 cm or greater annual follow up for 5 years recommended, for nodules 1.0 cm or greater FNA recommended. The ACT TI-RADS committee recommends targeting no more than two nodules for FNA. If three or more nodules meet criteria for FNA, the two with the most suspicious appearance based on ACR TI-RADS points should be sampled. Gopal Boogie [facility] US ORDERABLES Final Resul t from Last 3 Months Insurance [employer] MEDICAID [place] Care Teams Student Recruiter Relationship Specialty Start Date End Date Gopal Boogie PAC [address] [place] [address] PCP - General Physician Pressurizer 06/15/21
[2025-01-30 23:00] VITALS: BP 191/93; PULSE 65; RESP 20; TEMP 36.6; O2SAT 97
--- NOTE | 2025-01-30 23:08 | ED_ITS ---
HPI - Wound/Laceration General Chief Complaint: Wound/Laceration Stated Complaint: abscess Time Seen by Provider: 01/30/25 23:08 Source: patient Mode of arrival: ambulatory Limitations: no limitations History of Present Illness HPI narrative: patient is a 64-year-old female with left labial skin area for review today. She has noted this for the last week. Is painful. She has had this in the past similarly. Onset (ago): week(s) ( One) Location: genitals ( left internal labia) Place: home Context: other ( patient has a left internal labia skin lesion for review today that is causing her pain; this is a masslike finding to the patient) Associated symptoms: pain Treatments prior to arrival: other ( none) Related Data Home Medications ?Medication ?Instructions ?Recorded ?Confirmed ?Last Taken ?Type clonidine HCl 0.1 mg tablet 0.1 mg PO BID 12/17/23 12/17/23 Unknown History hydralazine 50 mg tablet 50 mg PO TID 12/17/23 12/17/23 Unknown History metformin 500 mg tablet 500 mg PO BID 12/17/23 12/17/23 Unknown History olmesartan 40 1 tablet PO DAILY 12/17/23 12/17/23 Unknown History mg-hydrochlorothiazide 12.5 mg tablet verapamil 120 mg 24 hr 120 mg PO BID 12/17/23 12/17/23 Unknown History capsule,extended release potassium chloride 20 mEq meq PO 11/22/24 Unknown History tablet,extended release(part/cryst) Allergies Allergy/AdvReac Type Severity Reaction Status Date / Time lincomycin Allergy Unknown Verified 11/22/24 16:17 Penicillins Allergy Unknown Verified 11/22/24 16:17 Sulfa (Sulfonamide Allergy Unknown Verified 11/22/24 16:17 Antibiotics) Review of Systems Review of Systems: All systems reviewed & are unremarkable except as noted in HPI and below Constitutional: Constitutional: Reports no additional constitutional complaints Eyes: Eyes: Reports no additional eye complaints ENT: Reports system reviewed and no additional complaints, except as documented Cardiovascular: Cardiovascular: Reports no additional cardiovascular complaints Respiratory: Respiratory: Reports no additional respiratory complaints Gastrointestinal: Gastrointestinal: Reports no additional gastrointestinal complaints Genitourinary: Genitourinary: Reports no additional female genitourinary complaints Musculoskeletal: Musculoskeletal: Reports no additional musculoskeletal complaints Integumentary/Breasts: Skin/Breast: Reports system reviewed and no additional complaints, except as docu Neurologic: Reports system reviewed and no additional complaints, except as documented Psychiatric: Psychiatric: Reports no additional psychiatric complaints Endocrine: Endocrine: Reports no additional endocrine complaints Hematologic/Lymphatic: Hematologic/Lymphatic: Reports no additional hematologic/lymphatic complaints Allergic/Immunologic: Allergic/Immunologic: Reports no additional allergic/immunologic complaints PMFSH Past Medical History Medical History Supraventricular tachycardia Diabetes mellitus Hypertension Surgical History Surgical History Hx of tonsillectomy History of cholecystectomy Exam Const: General: healthy appearing Nutritional Appearance: well nourished Orientation/consciousness: patient oriented x3 HENMT: Head: normal to inspection Ears: external ears normal Face/Nose/Sinus: Normal external nose present Eyes: Conjunctivae: conjunctivae normal Pupils: Equal, round and reactive pupils present EOM: EOMs intact bilaterally Neck: Neck: normal visual inspection Chest: Chest palpation & inspection: normal inspection of the chest Resp: Effort & Inspection: normal respiratory effort and not labored Auscultation: clear to auscultation bilaterally and no crackles Cardio: Rate: regular rate Rhythm: regular rhythm Heart sounds: no murmurs GI: Inspection: non-distended GI Palp: Yes Soft to palpation and No Tender ness to palpation present (GI) Auscultation: normal bowel sounds Other: exam: Exam done with female nurse Dalia in the room during the entire exam; direct visualization the left internal labia and more so in the midline is a large cystic like structure on examination that is tender to palpation; this area is more of a cystic like change that an abscess Back/Spine/Pelvis: Back: no CVA tenderness Skin: General skin exam: normal color Rashes: no rashes Wounds: no wounds Neuro: General: patient oriented x3, moves all extremities and no meningeal signs Extrem: General: normal to inspection Psych: Mental Status: mental status grossly normal Affect: normal affect Attitude: cooperative Course Vital Signs Vital signs: Vital Signs Temperature 36.6 C 01/30/25 23:00 Pulse Rate 65 01/30/25 23:00 Respiratory Rate 20 01/30/25 23:00 Blood Pressure 191/93 H 01/30/25 23:00 Pulse Oximetry 97 01/30/25 23:00 Oxygen Delivery Room Air 01/30/25 23:00 Temperature 36.6 C 01/31/25 00:55 Pulse Rate 82 01/31/25 00:55 Respiratory Rate 18 01/31/25 00:55 Blood Pressure 166/98 H 01/31/25 00:55 Pulse Oximetry 99 01/31/25 00:55 Oxygen Delivery Room Air 01/31/25 00:55 MDM - Wound/Laceration MDM Narrative Medical decision making narrative: patient is a 64-year-old female with left internal labia cystic like change for the past week causing her pain. Examination. Likely referral to OBGYN/ airport screener for further evaluation and treatment of this lesion. Discharge Plan Discharge Clinical Impression: Bartholin gland cyst Patient Disposition: Home Condition: Stable Instructions: Antibiotic Form, Bartholin Cyst (ED) Additional Instructions: Please follow-up with an OBGYN or just a airport screener to make a plan for this Bartholin gland cyst. Patient Language: Maori Prescriptions: New doxycycline monohydrate 100 mg capsule 100 mg PO BID 7 Days Qty: 14 0RF No Action clonidine HCl 0.1 mg tablet 0.1 mg PO BID hydralazine 50 mg tablet 50 mg PO TID verapamil 120 mg capsule,ext rel. pellets 24 hr 120 mg PO BID olmesartan-hydrochlorothiazide 40-12.5 mg tablet 1 tablet PO DAILY metformin 500 mg tablet 500 mg PO BID Patient Comments: reports she is not taking potassium chloride 20 mEq tablet,ER particles/crystals PO Follow-up/Referrals: Chuyita,JACQUELYN Riley [Primary Care Provider] - Time of Disposition: 00:27
--- OUTSIDE RECORDS SUMMARY | 2025-01-31 00:33 | XMS_ITS | Encounter Summary ---
Author Organization [facility] Address [address] [place] [address] Phone Care Team Providers Care Lie Detector Operator Name Role Phone Gopal Boogie Primary Care Provider [phone] Encounter Details Date Type Department Care Team (Late st Contact Info) Description 01/12/2025 Telephone [facility] Cardiology [address] [facility] Advanced Medicine 8th [place] [address] [place] [address] Odell Denny MD [address] [facility] [address] [place] [address] Social History Tobacco Use Types Packs/Day Years [...] on file 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 Epps * Telephone Encounter - Marily Oliveira. - 01/12/2025 3:35 PM CDT ----- Message from Nurse Yaritza Frey sent at 01/12/2025 12:58 PM CDT [...] on filedocumented in this encounter Care Teams Lie Detector Operator Relationship Specialty Start Date End Date Gopal Boogie PA [address] [place] [address] PCP - General Family Practice 01/16/23 documented as of this encounter
--- OUTSIDE RECORDS SUMMARY | 2025-01-31 00:33 | XMS_ITS | Clinical Summary ---
Author Organization [facility] Address [address] [place] [address] Phone Care Team Providers Care Compliance Representative Name Role Phone Gopal Boogie PAC Primary Care Provider [phone] Allergies Active Allergy Reactions Criticality Noted Date [...] 01/19/2025 11:59 PM CDT Hospital Encounter [facility] Ultrasound [address] [place] [address] Gopal Boogie, PAC Discharge Disposition: Discharged to home or Selfcare 01/19/2025 Travel 01/02/2025 Transcribe Orders [facility] Central Scheduling [address] [place] [address] Gopal Boogie, ROULA Non-toxic goiter [...] Sex Assigned at Female 06/23/2023 5:06 AM TERRAZZO TILE SETTER Legal Sex Female 12:58 AM CDT Gender Identity Female 06/23/2023 5:06 AM TERRAZZO TILE SETTER Sexual Orientation Not on file Last Filed [...] Brandon Rainey D.O. AP: AP Report ID: [id number] Reading Location: [place] [address] Procedure Note Brandon Rainey DO - 01/26/2025 [...] Brandon Rainey D.O. AP: RICK Report ID: [id number] Reading Location: [place] [address] IMPRESSION: The left thyroid 1.4 cm nodule [...] TI-RADS points should be sampled. Gopal Boogie [facility] US ORDERABLES Final Resul t from Last 3 Months Insurance [email or web address] MEDICAID BLUE [place] Care Teams Compliance Representative Relationship Specialty Start Date End Date Gopal Boogie PAC [address] [place] [address] PCP - General Physician Precision Devices Inspector/Tester 06/15/21
--- OUTSIDE RECORDS SUMMARY | 2025-01-31 00:33 | XMS_ITS | Clinical Summary ---
Author Organization [facility] Address [address] [place] [id number] Care Team Providers Care Pig Lead Melter Helper Name Role Phone Unavailable Primary Care Provider [...] Comments Blood Pressure 196/82 06/09/2023 5:10 PM PROCESS CONTROL SUPERVISOR Pulse 92 06/09/2023 5:10 PM PROCESS CONTROL SUPERVISOR Temperature 36.7 C (98 F) 06/09/2023 5:10 PM PROCESS CONTROL SUPERVISOR Respiratory Rate 20 06/09/2023 5:10 PM PROCESS CONTROL SUPERVISOR Oxygen Saturation 94% 06/09/2023 5:10 PM PROCESS CONTROL SUPERVISOR Inhaled Oxygen Concentration - - Weight 127 kg (280 lb) 06/09/2023 5:10 PM PROCESS CONTROL SUPERVISOR Height 160 cm (5' 3) 06/09/2023 5:10 PM PROCESS CONTROL SUPERVISOR Body Mass Index 49.6 06/09/2023 5:10 PM PROCESS CONTROL SUPERVISOR Plan of Treatment Health Maintenance Due Date [...] (1 - 1-dose 75+ series) 2036 Insurance [employer]
--- OUTSIDE RECORDS SUMMARY | 2025-01-31 00:33 | XMS_ITS | Clinical Summary ---
Author Organization [facility] Address [address] [place] [address] Care Team Providers Care General Internist And Physician Leader Name Role Phone Gopal Boogie Primary Care Provider [phone] Allergies Active Allergy Reactions Criticality Noted Date [...] Type Department Care Team Description 01/29/2025 Telephone [facility] [address] [place] [address] Advanced Medicine 8th [place] [address] [place] [address] Odell Denny MD 01/16/2025 Telephone [facility] [address] [place] [address] Advanced Medicine 8th [place] [address] [place] [address] [place], DORENE jazzy rov 01/12/2025 Telephone [facility] [address] [place] [address] [place] [address] [place] [address] Odell Denny MD 01/12/2025 Telephone [facility] [address] [place] [address] [place] [address] [place] [address] Odell Denny MD from Last 3 Months [...] on file 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 Gender Identity Not on file Sexual Orientation Not on file Obstetrics History Last Filed Vital Signs Vital Sign Reading Time Taken Comments Blood Pressure 152/70 05/02/2023 3:47 PM UPHOLSTERY TECH Pulse 63 05/02/2023 3:47 PM UPHOLSTERY TECH Temperature 36.8 C (98.2 F) 05/02/2023 3:47 PM UPHOLSTERY TECH Respiratory Rate 18 05/02/2023 3:47 PM UPHOLSTERY TECH Oxygen Saturation 97% 05/02/2023 3:47 PM UPHOLSTERY TECH Inhaled Oxygen Concentration - - Weight 116.6 kg (257 lb) 05/02/2023 3:47 PM UPHOLSTERY TECH Height 161.3 cm (5' 3.5) 05/02/2023 3:47 PM UPHOLSTERY TECH Body Mass Index 44.81 05/02/2023 3:47 PM UPHOLSTERY TECH Plan of Treatment Health Maintenance Due Date [...] Insurance [employer] OPEN ACCESS [employer] OPEN ACCESS [facility] [employer] OPEN ACCESS Care Teams General Internist And Physician Leader Relationship Specialty Start Date End Date Gopal Boogie PA [address] [place] [address] PCP - General Family Practice 01/16/23
[2025-01-31] MEDS: DOXYCYCLINE HYCLATE 100 MG TABLET PO (00:34)
[2025-01-31 00:55] VITALS: BP 166/98; PULSE 82; RESP 18; TEMP 36.6; O2SAT 99
== END 2025-01-31 01:00 | disposition home or self-care (01) ==
LOC: CHSED 01-31 00:31
PROVIDERS: Emergency Provider Emergency Medicine; PCP Physician Assistant
DX: N75.0 Cyst of Bartholin's gland (principal); I10 Essential (primary) hypertension; E11.9 Type 2 diabetes mellitus without complications
CPT/HCPCS: 99283; A9270

== ENCOUNTER 2025-03-03 22:58 | Emergency (ER) | payer OTHER, BC, SELFPAY ==
--- NOTE | ~2025-03-03 | XR_ITS ---
EXAMINATION: XR soft tissue neck DATE: 03/03/2025 23:39 INDICATION: Throat clicks when eating or lying down TECHNIQUE: AP and lateral views of the soft tissues of the neck were obtained. COMPARISON: None. FINDINGS: Mild cervical spondylosis with 3 mm retrolisthesis C3 on C4 and severe bilateral multilevel facet osteoarthritis. Atherosclerotic calcifications at the bilateral carotid bulbs, left greater than right. Prevertebral soft tissues are normal. Airway appears unremarkable with normal epiglottis. No radiopaque foreign bodies. Visualized upper lung zones are clear. IMPRESSION: 1. Atherosclerotic calcific a cyst at the bilateral carotid bulbs. Cervical soft tissues are otherwise unremarkable. 2. Mild cervical spondylosis with severe multilevel facet osteoarthritis. Reviewed, dictated and finalized at location A. IMPRESSION: 1. Atherosclerotic calcific a cyst at the bilateral carotid bulbs. Cervical sof t tissues are otherwise unremarkable. 2. Mild cervical spondylosis with severe multilevel facet osteoarthritis.
--- OUTSIDE RECORDS SUMMARY | 2025-03-03 23:02 | XMS_ITS | Clinical Summary ---
Author Organization [facility] Address [address] [place] [address] Care Team Providers Care Felt Finishing Supervisor Name Role Phone Unavailable Primary Care Provider [...] Comments Blood Pressure 196/82 06/09/2023 5:10 PM COREMAKER EXPERIMENTAL Pulse 92 06/09/2023 5:10 PM COREMAKER EXPERIMENTAL Temperature 36.7 C (98 F) 06/09/2023 5:10 PM COREMAKER EXPERIMENTAL Respiratory Rate 20 06/09/2023 5:10 PM COREMAKER EXPERIMENTAL Oxygen Saturation 94% 06/09/2023 5:10 PM COREMAKER EXPERIMENTAL Inhaled Oxygen Concentration - - Weight 127 kg (280 lb) 06/09/2023 5:10 PM COREMAKER EXPERIMENTAL Height 160 cm (5' 3) 06/09/2023 5:10 PM COREMAKER EXPERIMENTAL Body Mass Index 49.6 06/09/2023 5:10 PM COREMAKER EXPERIMENTAL Plan of Treatment Health Maintenance Due Date [...] (1 - 1-dose 75+ series) 2036 Insurance [employer]
--- OUTSIDE RECORDS SUMMARY | 2025-03-03 23:02 | XMS_ITS | Clinical Summary ---
Author Organization [facility] Address [address] [place] [address] Phone Care Team Providers Care Photography Colorist Name Role Phone Gopal Boogie PAC Primary Care Provider [phone] Allergies Active Allergy Reactions Criticality Noted Date [...] 01/19/2025 11:59 PM CDT Hospital Encounter [facility] Ultrasound [address] [place] [address] Gopal Boogie, PAC Discharge Disposition: Discharged to home or Selfcare 01/19/2025 Travel 01/02/2025 Transcribe Orders [facility] Central Scheduling [address] [facility] [place] [address] Gopal Boogie, ROULA Non-toxic goiter [...] Sex Assigned at Female 06/23/2023 5:06 AM GROUP WORKER Legal Sex Female 12:58 AM CDT Gender Identity Female 06/23/2023 5:06 AM GROUP WORKER Sexual Orientation Not on file Last Filed [...] years 1-dose series) 2021 Influenza Immunization (#1) 2025 SARS-COV-2 Immunization (1 - season) 2025 DTaP/Tdap/Td Immunization Discontinued 02/13/2006 Hepatitis B [...] Brandon Rainey D.O. AP: AP Report ID: [id number] Reading Location: [place] [address] Procedure Note Brandon Rainey DO - 01/26/2025 [...] Brandon Rainey D.O. AP: RICK Report ID: [id number] Reading Location: [place] [address] IMPRESSION: The left thyroid 1.4 cm nodule [...] TI-RADS points should be sampled. Gopal Boogie [facility] US ORDERABLES Final Resul t from Last 3 Months Insurance [employer] MEDICAID BLUE [place] Care Teams Photography Colorist Relationship Specialty Start Date End Date Gopal Boogie PAC [address] [place] [address] PCP - General Physician Milled Lumber Grader 06/15/21
[2025-03-03 23:05] VITALS: PULSE 77; RESP 18; O2SAT 97
[2025-03-03 23:15] VITALS: BP 189/81; TEMP 36.8
--- NOTE | 2025-03-03 23:46 | ED.GENADULT ---
HPI - General Adult General Chief complaint: Unspecified Stated complaint: throat irritation Time Seen by Provider: 03/03/25 23:01 Source: patient Mode of arrival: ambulatory Limitations: no limitations History of Present Illness HPI narrative: 64-year-old with a history of hypertension presents to the ER with a complaint of clicks in her throat when she swallows which has been ongoing for past 1 week. She denies having any shortness of breath or difficulty in breathing or swallowing. She states it is annoying and it is bothering her. patient checked online and it said it could be pneumonia.She has no cough , fever or SOB Onset (ago): week(s) (1) Location: neck Radiation: non-radiation Severity: mild Exacerbating factors: other ( Swallowing) Associated symptoms: denies other symptoms Related Data Home Medications ?Medication ?Instructions ?Recorded ?Confirmed ?Last Taken ?Type clonidine HCl 0.1 mg tablet 0.1 mg PO BID 12/17/23 12/17/23 Unknown History hydralazine 50 mg tablet 50 mg PO TID 12/17/23 12/17/23 Unknown History metformin 500 mg tablet 500 mg PO BID 12/17/23 12/17/23 Unknown History olmesartan 40 1 tablet PO DAILY 12/17/23 12/17/23 Unknown History mg-hydrochlorothiazide 12.5 mg tablet verapamil 120 mg 24 hr 120 mg PO BID 12/17/23 12/17/23 Unknown History capsule,extended release potassium chloride 20 mEq meq PO 11/22/24 Unknown History tablet,extended release(part/cryst) Allergies Allergy/AdvReac Type Severity Reaction Status Date / Time lincomycin Allergy Intermediate Hives Verified 03/03/25 23:26 Penicillins Allergy Intermediate Hives Verified 03/03/25 23:26 Sulfa (Sulfonamide Allergy Intermediate Hives Verified 03/03/25 23:26 Antibiotics) Review of Systems Review of Systems: All systems reviewed & are unremarkable except as noted in HPI and below Constitutional: Constitutional: Reports no additional constitutional complaints Eyes: Eyes: Reports no additional eye complaints ENT: Reports as per HPI Cardiovascular: Cardiovascular: Reports no additional cardiovascular complaints Respiratory: Respiratory: Reports no additional respiratory complaints Gastrointestinal: Gastrointestinal: Reports no additional gastrointestinal complaints Genitourinary: Genitourinary: Reports no additional female genitourinary complaints Musculoskeletal: Musculoskeletal: Reports no additional musculoskeletal complaints [facility] Past Medical History Medical History Supraventricular tachycardia Diabetes mellitus Hypertension Surgical History Surgical History Hx of tonsillectomy History of cholecystectomy Exam Narrative: GENERAL: Well-appearing, well-nourished, and in no acute distress. HEAD: Normocephalic, atraumatic. EYES: PERRLA and EOMI. ENT: Nares clear, no rhinorrhea or epistaxis. Mucous membranes moist. NECK: Supple. CHEST: Clear to auscultation. No respiratory distress. HEART: Regular rate and rhythm. No murmur heard. Normal peripheral pulses. EXTREMITIES: Normal range of motion. No edema. SKIN: Warm, dry, no rash. NEURO: No focal deficits. Alert and oriented x3. PSYCH: Normal mood and affect. Course Course Emergency Course: notified her about the Xray findings , advised her to continue home medications, Vital Signs Vital signs: Vital Signs Pulse Rate 77 03/03/25 23:05 Respiratory Rate 18 03/03/25 23:05 Pulse Oximetry 97 03/03/25 23:05 Oxygen Delivery Room Air 03/03/25 23:05 Temperature 36.8 C 03/03/25 23:15 Pulse Rate 77 03/03/25 23:05 Respiratory Rate 18 03/03/25 23:05 Blood Pressure 189/81 H 03/03/25 23:15 Pulse Oximetry 97 03/03/25 23:05 Oxygen Delivery Room Air 03/03/25 23:05 Medical Decision Making Vital Signs Vital Signs: Vital Signs Pulse Rate 77 03/03/25 23:05 Respiratory Rate 18 03/03/25 23:05 Pulse Oximetry 97 03/03/25 23:05 Oxygen Delivery Room Air 03/03/25 23:05 Temperature 36.8 C 03/03/25 23:15 Pulse Rate 77 03/03/25 23:05 Respiratory Rate 18 03/03/25 23:05 Blood Pressure 189/81 H 03/03/25 23:15 Pulse Oximetry 97 03/03/25 23:05 Oxygen Delivery Room Air 03/03/25 23:05 Imaging Data My impression: no acute findings , DJD of the C spine Discharge Plan Discharge Clinical Impression: Neck complaint, Feared complaint without diagnosis Patient Disposition: Home Condition: Stable Instructions: Antibiotic Form, Neck Pain (ED) Patient Language: Amharic Prescriptions: No Action clonidine HCl 0.1 mg tablet 0.1 mg PO BID hydralazine 50 mg tablet 50 mg PO TID verapamil 120 mg capsule,ext rel. pellets 24 hr 120 mg PO BID olmesartan-hydrochlorothiazide 40-12.5 mg tablet 1 tablet PO DAILY metformin 500 mg tablet 500 mg PO BID Patient Comments: reports she is not taking potassium chloride 20 mEq tablet,ER particles/crystals PO doxycycline monohydrate 100 mg capsule 100 mg PO BID 7 Days Qty: 14 0RF Follow-up/Referrals: Chuyita,JACQUELYN Riley [Primary Care Provider] Time of Disposition: 23:57
[2025-03-04 00:38] VITALS: BP 172/88
== END 2025-03-04 00:38 | disposition home or self-care (01) ==
PROVIDERS: Emergency Provider Family Medicine; PCP Physician Assistant
DX: Z71.1 Person with feared health complaint in whom no diagnosis is made (principal); J02.9 Acute pharyngitis, unspecified; E11.9 Type 2 diabetes mellitus without complications; I10 Essential (primary) hypertension
CPT/HCPCS: 70360; 99283